=== PATIENT | female | born 1970 | race Two or more races ===

== ENCOUNTER 2022-12-28 16:53 | Inpatient (IN) | payer MEDICAID, OTHER ==
[~2022-12-28] VITALS: Ht 167.6 cm; Wt 81.6 kg
[2022-12-28] MEDS ORDERED: RIFAX550 PO (17:21)
[2022-12-28] MEDS ORDERED: DULO-113 PO (17:21)
[2022-12-28] MEDS ORDERED: LEVO112T4 PO (17:21)
[2022-12-28] MEDS ORDERED: METH25VI SQ (17:21)
[2022-12-28] MEDS ORDERED: GABA-1181 PO (17:21)
[2022-12-28] MEDS ORDERED: LORazepam 2 MG TABLET PO ONE (19:45)
[2022-12-28] MEDS ORDERED: TIRZ12.5 SQ (19:55)
[2022-12-28] MEDS ORDERED: LACT10SO10 PO (19:55)
[2022-12-28] MEDS ORDERED: NICO-803 TD (19:55)
[2022-12-28] MEDS ORDERED: DULO-114 PO (19:55)
[2022-12-28] MEDS ORDERED: CYCL5TAB PO (19:55)
[2022-12-28] MEDS ORDERED: SEMA7TAB2 PO (19:55)
[2022-12-28] MEDS ORDERED: GABA-1201 PO (19:55)
[2022-12-28] MEDS ORDERED: OXYB-34 PO (19:55)
[2022-12-28] MEDS ORDERED: FOLI-130 PO (19:55)
[2022-12-28 20:31] LABS: BASOPHILS % (AUTO) 0.8 % (0.0-2.0); EOSINOPHILS % (AUTO) 2.4 % (1.0-6.0); HEMATOCRIT 38.4 % (36-46); HEMOGLOBIN 12.7 g/dL (12.0-16.0); LYMPHOCYTES # (AUTO) 3.2 K/uL (1.0-4.8); LYMPHOCYTES % (AUTO) 26.6 % (22.0-44.0); MEAN CORPUSCULAR VOLUME 85 fL (80-100); MONOCYTES # (AUTO) 0.8 K/uL (0.1-1.0); MONOCYTES % (AUTO) 6.8 % (2.0-9.0); NEUTROPHILS # (AUTO) 7.6 K/uL (1.8-7.7); NEUTROPHILS % (AUTO) 63.4 % (40.0-70.0); PLATELET COUNT (AUTO) 353 K/uL (150-450); RED BLOOD CELL COUNT(AUTO) 4.53 MIL/uL (4.00-5.20); RED CELL DISTRIBUTION WIDTH 14.7 % (11.5-14.5)
[2022-12-28 20:47] LABS: ANION GAP 16 mmol/L (8-16); CALCIUM, TOTAL 9.1 mg/dL (8.8-10.5); CARBON DIOXIDE 24 mmol/L (22-29); CHLORIDE 102 mmol/L (98-107); CREATININE 0.55 mg/dL (0.60-1.30); GLOMERULAR FILTR. RATE CALC > 60 mL/min (>60); GLUCOSE,RANDOM 113 mg/dL (70-110); SODIUM SERUM 142 mmol/L (136-145)
[2022-12-28 20:58] LABS: ALANINE AMINOTRANSFERASE 13 U/L (12-78); ALBUMIN 3.6 g/dL (3.4-5.0); ALKALINE PHOSPHATASE 141 U/L (46-116); ASPARTATE AMINOTRANSFERASE 16 U/L (15-37); BILIRUBIN,TOTAL 0.7 mg/dL (0.1-1.0); THYROID STIMULATING HORMONE 0.21 uIU/mL (0.36-3.74); TOTAL PROTEIN, SERUM 7.7 g/dL (6.4-8.2)
[2022-12-28 21:26] LABS: COVID AG,FIA SOURCE NASOPHARYNGEAL
[2022-12-29] MEDS: LORazepam 2 MG TABLET PO PRN ×2 (04:23→13:53)
[2022-12-29] MEDS: HALOPERIDOL 5 MG TABLET PO PRN ×2 (04:23→13:53)
[2022-12-29] MEDS ORDERED: POTASSIUM CHLORIDE 10% 40 MEQ/30 ML LIQUID UDCUP PO ONE (07:45)
[2022-12-29 11:23] LABS: AMPHET/METH SCREEN,URINE NEGATIVE (NEGATIVE); BARBITURATE SCREEN, URINE NEGATIVE (NEGATIVE); BENZODIAZEPINES SCREEN,URINE NEGATIVE (NEGATIVE); CANNABINOID SCREEN,URINE POSITIVE (NEGATIVE); COCAINE SCREEN,URINE NEGATIVE (NEGATIVE); METHADONE SCREEN, URINE NEGATIVE (NEGATIVE); OPIATE SCREEN,URINE NEGATIVE (NEGATIVE); PHENCYCLIDINE SCREEN,URINE NEGATIVE (NEGATIVE)
[2022-12-29] MEDS ORDERED: ACETAMINOPHEN 500 MG TABLET PO ONE (13:00)
[2022-12-29] MEDS: ZOLPIDEM TARTRATE 10 MG TABLET PO PRN (21:49)
[2022-12-30] MEDS: LORazepam 2 MG TABLET PO PRN ×2 (03:03→20:15)
[2022-12-30] MEDS ORDERED: ACETAMINOPHEN 325 MG TABLET PO PRN (06:45)
[2022-12-30] MEDS ORDERED: ACETAMINOPHEN 500 MG TABLET PO ONE (06:45)
[2022-12-30 11:31] LABS: ANION GAP 6 mmol/L (8-16); CALCIUM, TOTAL 8.5 mg/dL (8.8-10.5); CARBON DIOXIDE 30 mmol/L (22-29); CHLORIDE 106 mmol/L (98-107); CREATININE 0.46 mg/dL (0.60-1.30); GLOMERULAR FILTR. RATE CALC > 60 mL/min (>60); GLUCOSE,RANDOM 82 mg/dL (70-110); POTASSIUM 3.5 mmol/L (3.5-5.1); SODIUM SERUM 142 mmol/L (136-145)
[2022-12-30] MEDS ORDERED: MAGNESIUM HYDROXIDE SUSPENSION 30 ML UDCUP PO PRN (12:00)
[2022-12-30] MEDS ORDERED: MAG HYDROX/AL HYDROX/SIMETH ES 30 ML SUSPENSION UDCUP PO PRN (12:00)
[2022-12-30] MEDS ORDERED: LOPERAMIDE HCL 2 MG CAPSULE PO PRN (12:00)
[2022-12-30] MEDS ORDERED: PETROLATUM,WHITE 28 GM JELLY TP PRN (12:00)
[2022-12-30] MEDS ORDERED: DOCUSATE SODIUM 100 MG CAPSULE PO PRN (12:00)
[2022-12-30] MEDS ORDERED: ALBUTEROL SULFATE HFA 90 MCG/PUFF 8 GM INHALER IH PRN (12:00)
[2022-12-30] MEDS ORDERED: GuaiFENesin/D-METHORPHAN [SUGAR-FREE] 200-20MG/10 ML SYRUP UDCUP PO PRN (12:00)
[2022-12-30] MEDS ORDERED: CloNIDine HCL 0.1 MG TABLET PO PRN (12:00)
[2022-12-30] MEDS ORDERED: ONDANSETRON HCL 4 MG TABLET PO PRN (12:00)
[2022-12-30] MEDS: LACTULOSE 20 GM/30 ML SOLUTION UDCUP PO SCH ×2 (12:19→16:34)
[2022-12-30] MEDS ORDERED: NICOTINE 21 MG/24 HOUR PATCH TD ONE (12:45)
[2022-12-30] MEDS: DULoxetine HCL 30 MG CAPSULE PO SCH (12:57)
[2022-12-30 13:05] VITALS: BP 139/78
[2022-12-30] MEDS: IBUPROFEN 400 MG TABLET PO PRN (13:05)
[2022-12-30 14:27] VITALS: BP 138/84
[2022-12-30] MEDS: RIFAXIMIN 550 MG TABLET PO SCH (16:35)
[2022-12-30] MEDS: GABAPENTIN 400 MG CAPSULE PO SCH (16:35)
[2022-12-30] MEDS ORDERED: PNEUMOCOCCAL VACCINE POLYVALENT 0.5 ML VIAL [PPSV23] IM. ONE (19:30)
[2022-12-30] MEDS: OXYBUTYNIN CHLORIDE 5 MG ER TABLET PO SCH (20:30)
[2022-12-30] MEDS: ZOLPIDEM TARTRATE 10 MG TABLET PO PRN (20:45)
[2022-12-31] MEDS: LEVOTHYROXINE SODIUM 112 MCG TABLET PO SCH (06:21)
[2022-12-31] MEDS: IBUPROFEN 400 MG TABLET PO PRN ×2 (08:09→16:09)
[2022-12-31] MEDS: RIFAXIMIN 550 MG TABLET PO SCH ×2 (08:10→15:55)
[2022-12-31] MEDS: LACTULOSE 20 GM/30 ML SOLUTION UDCUP PO SCH ×3 (08:10→15:56)
[2022-12-31] MEDS: DULoxetine HCL 30 MG CAPSULE PO SCH (08:10)
[2022-12-31] MEDS: GABAPENTIN 400 MG CAPSULE PO SCH ×2 (08:10→15:56)
[2022-12-31] MEDS: FOLIC ACID 1 MG TABLET PO SCH (08:10)
[2022-12-31] MEDS: NICOTINE 21 MG/24 HOUR PATCH TD SCH (08:11)
[2022-12-31] MEDS: OXYBUTYNIN CHLORIDE 5 MG ER TABLET PO SCH (21:00)
[2022-12-31 23:12] VITALS: BP 138/102
[2023-01-01 01:07] VITALS: BP 121/63
[2023-01-01] MEDS: IBUPROFEN 400 MG TABLET PO PRN ×3 (01:09→21:58)
[2023-01-01] MEDS: ZOLPIDEM TARTRATE 10 MG TABLET PO PRN ×2 (01:09→20:57)
[2023-01-01] MEDS: LEVOTHYROXINE SODIUM 112 MCG TABLET PO SCH (06:50)
[2023-01-01 06:52] VITALS: BP 126/72
[2023-01-01] MEDS: ACETAMINOPHEN 325 MG TABLET PO PRN ×2 (06:54→15:39)
[2023-01-01] MEDS: DULoxetine HCL 30 MG CAPSULE PO SCH (08:19)
[2023-01-01] MEDS: GABAPENTIN 400 MG CAPSULE PO SCH ×2 (08:19→16:46)
[2023-01-01] MEDS: RIFAXIMIN 550 MG TABLET PO SCH ×2 (08:19→16:46)
[2023-01-01] MEDS: FOLIC ACID 1 MG TABLET PO SCH (08:19)
[2023-01-01] MEDS: LACTULOSE 20 GM/30 ML SOLUTION UDCUP PO SCH ×3 (08:19→16:46)
[2023-01-01] MEDS: NICOTINE 21 MG/24 HOUR PATCH TD SCH (08:20)
[2023-01-01 09:09] VITALS: BP 106/59
[2023-01-01 09:24] VITALS: BP 106/59
[2023-01-01 15:39] VITALS: BP 110/60
[2023-01-01] MEDS: OXYBUTYNIN CHLORIDE 5 MG ER TABLET PO SCH (20:10)
[2023-01-01 23:04] VITALS: BP 103/68
[2023-01-02] MEDS: LORazepam 2 MG TABLET PO PRN (04:30)
[2023-01-02] MEDS: LEVOTHYROXINE SODIUM 112 MCG TABLET PO SCH (06:23)
[2023-01-02 08:25] VITALS: BP 111/71
[2023-01-02] MEDS: FOLIC ACID 1 MG TABLET PO SCH (10:40)
[2023-01-02] MEDS: DULoxetine HCL 30 MG CAPSULE PO SCH (10:41)
[2023-01-02] MEDS: NICOTINE 21 MG/24 HOUR PATCH TD SCH (10:41)
[2023-01-02] MEDS: RIFAXIMIN 550 MG TABLET PO SCH (10:41)
[2023-01-02] MEDS: LACTULOSE 20 GM/30 ML SOLUTION UDCUP PO SCH ×2 (10:41→12:56)
[2023-01-02] MEDS: GABAPENTIN 400 MG CAPSULE PO SCH (10:41)
[2023-01-02 10:50] VITALS: BP 118/72
[2023-01-02] MEDS: IBUPROFEN 400 MG TABLET PO PRN (10:50)
[2023-01-02] MEDS ORDERED: RIFAX550 PO (13:42)
[2023-01-02] MEDS ORDERED: LACT10SO10 PO (13:42)
[2023-01-02] MEDS ORDERED: GABA-1201 PO (13:42)
[2023-01-02] MEDS ORDERED: DULO-114 PO (13:42)
[2023-01-02] MEDS ORDERED: FOLI-130 PO (13:42)
[2023-01-02] MEDS ORDERED: OXYB-34 PO (13:42)
== END 2023-01-02 13:20 | disposition home or self-care (01) | DRG 751 ==
LOC: EMS 16:54 → 3EI 12-30 10:30
PROVIDERS: ADMIT Psychiatry & Neurology Psychiatry; ATTEND Psychiatry & Neurology Psychiatry
DX: F33.2 Major depressive disorder, recurrent severe without psychotic features (principal); K76.82 Hepatic encephalopathy; R45.851 Suicidal ideations; K74.60 Unspecified cirrhosis of liver; E87.6 Hypokalemia; F41.9 Anxiety disorder, unspecified; F17.210 Nicotine dependence, cigarettes, uncomplicated; F12.90 Cannabis use, unspecified, uncomplicated; Z20.822 Contact with and (suspected) exposure to COVID-19; E03.9 Hypothyroidism, unspecified; M79.7 Fibromyalgia; M19.90 Unspecified osteoarthritis, unspecified site; Z96.659 Presence of unspecified artificial knee joint; G89.29 Other chronic pain; G47.00 Insomnia, unspecified; Z79.899 Other long term (current) drug therapy; Z88.5 Allergy status to narcotic agent
CPT/HCPCS: 71045; 80048; 80053; 80307; 82140; 83880; 84443; 84484; 85025; 99285; G0480; 36415-L1; 36415-TC